=== PATIENT | male | born 1975 | race Caucasian/White ===

== ENCOUNTER 2018-10-21 06:01 | Emergency (ER) | payer OTHER ==
[~2018-10-21] VITALS: Ht 175.3 cm; Wt 90.7 kg
--- OUTSIDE RECORDS SUMMARY | 2018-10-21 06:10 | XMS REPORT | Continuity of Care Document ---
Author Organization Unknown Address Unknown Allergies There is no data. Medications There is no data. Problems Date Dx Coded Attending Type Code Diagnosis Diagnosed By 12/20/2007 703.0 NAIL INGROWN 11/25/2012 465.9 UPPER RESPIRATORY INFECTION 12/06/2012 780.79 fatigue 12/06/2012 786.2 COUGH Procedures There is no data. Results There is no data. Encounters ACCT No. Visit Date/Time Discharge Status Pt. Type Provider Facility Loc./Unit Complaint [id number] 08/01/2013 12:30:00 08/01/2013 23:59:59 [facility] Outpatient [id number] 06/06/2013 11:57:00 06/06/2013 23:59:59 [facility] Outpatient [id number] 09/02/2017 11:35:00 09/02/2017 23:59:59 [facility] Outpatient ALIYAH CHILDRESS LAC [facility] [id number] 12/06/2012 09:23:00 Document Registration
--- OUTSIDE RECORDS SUMMARY | 2018-10-21 06:10 | XMS REPORT ---
Author JUAN Lynch [facility] eClinicalWorks Address Unknown Phone Unavailable Care Team Providers Care Department Store Manager Name Role Phone JUAN DAUGHERTY CP Unavailable Allergies, Adverse Reactions, Alerts Substance Reaction Event Type N.K.D.A. Info Not Available Non Drug Allergy Problems Problem Type Condition Code Onset Dates Condition Status Problem Other malaise and fatigue 780.79 Active Problem Cough 786.2 Active Problem Acute upper respiratory infections of unspecified site 465.9 Active Assessment Pain in right knee M25.561 Active Medications No Known Medications Procedures Procedure Coding System Code Date Office Visit, Est Pt., Level 3 CPT-4 02981 Dec 24, 2015 Vital Signs Date/Time: Dec 24, 2015 Cardiac Monitoring Heart Rate 100 bpm Weight 207.6 lbs Height 67 in BMI 32.51 Index Blood Pressure Diastolic 84 mmHg Blood Pressure Systolic 134 mmHg Results No Known Results Summary Purpose eClinicalWorks Submission
--- OUTSIDE RECORDS SUMMARY | 2018-10-21 06:10 | XMS REPORT ---
Author Author PRASHANT MONROE [facility] IN [facility] Address [address] [place] [address] Care Team Providers Care Museum Director Name Role Phone PRASHANT MONROE Unavailable PROBLEMS Type Condition ICD9-CM Code [id number] Code Onset Dates Condition Status SNOMED Code Problem Chondromalacia patellae, right knee M22.41 Active 67704316 Problem Acute upper respiratory infections of unspecified site 465.9 Active 77738095 Problem Other malaise and fatigue 780.79 Active 586291437 Problem Cough 786.2 Active 60593319 ALLERGIES No Known Allergies ENCOUNTERS Encounter Location Date Diagnosis [facility] [place] [address] [place] [id number] [place] [address] August, Acute gastritis without hemorrhage, unspecified gastritis type K29.00 [place] [address] [place] [id number] [place] [id number] Mar, Chondromalacia patellae, right knee M22.41 [place] [address] [place] [id number] [place] [address] Jan, Pes anserinus bursitis of right knee M70.51 [place] [address] [place] [id number] [place] [address] Dec, Encounter to establish care Z76.89 ; Pain in right knee M25.561 and Other chronic pain G89.29 [place] [address] [place] [id number] [place] [address] Dec, Pain in right knee M25.561 [facility]ALK IN [facility] [address] [place] [id number] [place] [address] Nov, Pain in right knee M25.561 [place] [address] [place] [id number] [place] [address] Jul, [facility] [address] [facility] [id number] [address] Jul, [facility] [address] [facility] [id number] [address] Nov, [facility] [address] [facility] [id number] [address] Nov, [facility] [address] [facility] [id number] [address] Nov, IMMUNIZATIONS No Known Immunizations SOCIAL HISTORY Never Assessed REASON FOR VISIT Lower abd pain started Wednesday- from a pepper he ate JStrasserRN PLAN OF CARE Activity Details Follow Up keep scheduled appt. for f/u and to address HTN Reason: VITAL SIGNS Height 67 in 2017-09-02 Weight 214.2 lbs 2017-09-02 Temperature 97.8 degrees Fahrenheit 2017-09-02 Heart Rate 68 bpm 2017-09-02 Respiratory Rate 20 2017-09-02 BMI 33.54 kg/m2 2017-09-02 Blood pressure systolic 132 mmHg 2017-09-02 Blood pressure diastolic 100 mmHg 2017-09-02 MEDICATIONS Medication Instructions Dosage Frequency Start Date End Date Duration Status Advil 200 MG Orally Three times a day 1 tablet with food or milk as needed 8h Active Ranitidine HCl 150 MG Orally Once a day 1 tablet at bedtime 24h August, 30 day(s) Active RESULTS No Results PROCEDURES No Known procedures INSTRUCTIONS MEDICATIONS ADMINISTERED No Known Medications
--- OUTSIDE RECORDS SUMMARY | 2018-10-21 06:10 | XMS REPORT ---
Author Author MAX SHARMA [facility] Address [address] [place] [address] Care Team Providers Care Him Analyst Name Role Phone EDITH MAX Unavailable PROBLEMS Type Condition ICD9-CM Code [id number] Code Onset Dates Condition Status SNOMED Code Problem Acute upper respiratory infections of unspecified site 465.9 Active 64437086 Problem Other malaise and fatigue 780.79 Active 226279000 Problem Cough 786.2 Active 09538377 Assessment Pain in right knee M25.561 Dec, Active 18931771 ALLERGIES Substance Reaction Event Type Date Status N.K.D.A. Unknown Non Drug Allergy Dec, Unknown SOCIAL HISTORY No smoking Hx information available PLAN OF CARE VITAL SIGNS Height 67 in 2016-01-02 Weight 208.6 lbs 2016-01-02 Heart Rate 68 bpm 2016-01-02 Respiratory Rate 18 2016-01-02 BMI 32.67 kg/m2 2016-01-02 Blood pressure systolic 144 mmHg 2016-01-02 Blood pressure diastolic 82 mmHg 2016-01-02 MEDICATIONS Unknown Medications RESULTS No Results PROCEDURES Procedure Date Ordered Related Diagnosis Body Site Office Visit, Est Pt., Level 3 Jan 02, 2016 IMMUNIZATIONS No Known Immunizations
--- OUTSIDE RECORDS SUMMARY | 2018-10-21 06:10 | XMS REPORT ---
Author Author ROLO GUZMAN [facility] eClinicalWorks Address Unknown Phone Unavailable Care Team Providers Care Lime Kiln Operator Name Role Phone ROLO GUZMAN CP Unavailable Allergies No Known Allergies Problems Problem Type Condition Code Onset Dates Condition Status Problem Other malaise and fatigue 780.79 Active Problem Cough 786.2 Active Problem Acute upper respiratory infections of unspecified site 465.9 Active Assessment Pes anserinus bursitis of right knee M70.51 Active Medications No Known Medications Procedures Procedure Coding System Code Date Office Visit, Est Pt., Level 3 CPT-4 79504 Feb 13, 2016 DEPO MEDROL 80 MG/ML CPT-4 J1040 Feb 13, 2016 DRAIN/INJECT, JOINT/BURSA CPT-4 32839 Feb 13, 2016 Vital Signs Date/Time: Feb 13, 2016 Blood Pressure Diastolic 80 mmHg Blood Pressure Systolic 132 mmHg Height 67 in Results Name Result Date Reference Range Unit Abnormality Flag JOINT INJECTION-LARGE JOINT Summary Purpose eClinicalWorks Submission
--- OUTSIDE RECORDS SUMMARY | 2018-10-21 06:10 | XMS REPORT ---
Author Author Migration, Doctor Organization [facility] Address Unknown Phone Unavailable Care Team Providers Care Sweatband Shaper Name Role Phone Migration, Doctor Unavailable Unavailable PROBLEMS Type Condition ICD9-CM Code [id number] Code Onset Dates Condition Status SNOMED Code Problem Acute upper respiratory infections of unspecified site 465.9 Active 40308053 Problem Chondromalacia patellae, right knee M22.41 Active 76308909 Problem Cough 786.2 Active 76488865 Problem Other malaise and fatigue 780.79 Active 463113327 ALLERGIES No Information ENCOUNTERS Encounter Location Date Diagnosis [facility]ALK IN [facility] [address] [address] August, Acute gastritis without hemorrhage, unspecified gastritis type K29.00 [place] [address] [address] Mar, Chondromalacia patellae, right knee M22.41 [place] [address] [address] Jan, Pes anserinus bursitis of right knee M70.51 [place] [address] [address] Dec, Encounter to establish care Z76.89 ; Pain in right knee M25.561 and Other chronic pain G89.29 [facility] [place] [address] [place] [id number] [place] [address] Dec, Pain in right knee M25.561 [facility] [address] [address] Nov, Pain in right knee M25.561 [place] [address] [address] Jul, [place] [address] [place] [address] Jul, [facility] [place] [address] [facility] [id number] [place] [address] Nov, [facility] [place] [address] [facility] [id number] [place] [address] Nov, [facility] [place] [address] [facility] [id number] [address] Nov, IMMUNIZATIONS No Known Immunizations SOCIAL HISTORY Never Assessed REASON FOR VISIT EMR-[facility] PLAN OF CARE VITAL SIGNS MEDICATIONS Medication Instructions Dosage Frequency Start Date End Date Duration Status Levaquin 750 mg 1 tablet by Oral route every 24 hours for 10 days Nov, Active PredniSONE 20 mg 1 tablet by Oral route 2 times per day for 5 day(s) suggested dosing time 8 am and 3 pm Nov, Active Codeine-Guaifenesin 10-100 mg/5 mL take 5-10 milliliters by Oral route as needed every 4 hours will cause drowsiness. No driving or operating equipment Nov, Active Zithromax Z-Evert 250 mg 2 tablet by Oral route 1 time per day for 5 days on day 1 then take 1 tab daily on days 2-5 Nov, Active RESULTS No Results PROCEDURES No Known procedures INSTRUCTIONS MEDICATIONS ADMINISTERED No Known Medications
--- OUTSIDE RECORDS SUMMARY | 2018-10-21 06:10 | XMS REPORT ---
Author Author EL KIMBLE [facility] Address Unknown Phone Unavailable Care Team Providers Care Architecture Internship Name Role Phone EL KIMBLE CP Unavailable Allergies, Adverse Reactions, Alerts Substance Reaction Event Type N.K.D.A. Info Not Available Non Drug Allergy Problems Problem Type Condition Code Onset Dates Condition Status Problem Other malaise and fatigue 780.79 Active Problem Cough 786.2 Active Problem Acute upper respiratory infections of unspecified site 465.9 Active Assessment Other chronic pain G89.29 Active Assessment Encounter to establish care Z76.89 Active Assessment Pain in right knee M25.561 Active Medications No Known Medications Procedures Procedure Coding System Code Date Office Visit, New Pt., Level 3 CPT-4 95875 Jan 23, 2016 X-RAY EXAM OF KNEE, 3 CPT-4 96007 Jan 23, 2016 Vital Signs Date/Time: Jan 23, 2016 Cardiac Monitoring Heart Rate 64 bpm Weight 207.6 lbs Height 67 in BMI 32.51 Index Blood Pressure Diastolic 84 mmHg Blood Pressure Systolic 126 mmHg Results Name Result Date Reference Range Unit Abnormality Flag Xray : Knee, Right 3 views (IN HOUSE) Summary Purpose eClinicalWorks Submission
[2018-10-21] MEDS ORDERED: KETOROLAC 60 MG/2 ML VIAL IM STA (06:32)
--- NOTE | 2018-10-21 06:41 | ED Back Pain ---
General Chief Complaint: General Problems/Pain Stated Complaint: BACK PAIN Nursing Triage Note: PT COMPLAINING OF PAIN ACROSS HIS BOTTOM THAT STARTED 4 DAYS AGO. PT STATES HE DID NOT INJURE IT BUT THE PAIN WAKES HIM UP FROM HIS SLEEP Nursing Sepsis Screen: No Definite Risk Source of Information: Patient Exam Limitations: Language Barrier History of Present Illness Date Seen by Provider: Oct 21, 2018 Time Seen by Provider: 06:26 Initial Comments Here with pain that has been intermittent over the last 4 days and is to the area of the coccyx. Denies any specific injury. 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 It woke him up this morning as about a month and he did take 3 ibuprofen [id number]. Denies any swelling to the area of pain. Hurts when he is sitting on it and when standing. Denies bowel or bladder problems but states it does hurt when he is having a bowel movement. Location: Coccyx Timing/Duration: 4-5 Days, Changing Over Time Severity: Moderate Radiation: Buttocks Method of Injury: Unknown Modifying Factors: Improves With Pain Medication Associated Symptoms: No muscle spasms, No numbness in legs/feet, No tingling in legs/feet, No sensory/motor loss, No loss of bladder control, No loss of bowel control Allergies and Home Medications Allergies Coded Allergies: No Known Drug Allergies (Unverified , 10/21/18) Home Medications No Active Prescriptions or Reported Meds Patient Home Medication List Home Medication List Reviewed: Yes Review of Systems Constitutional: see HPI; No chills, No fever Respiratory: no symptoms reported Cardiovascular: no symptoms reported Gastrointestinal: no symptoms reported Musculoskeletal: joint pain; No muscle pain Skin: no symptoms reported Psychiatric/Neurological: No Symptoms Reported Past Zkajkwh-Dhzlel-Hrsbko Hx Past Med/Social Hx: Reviewed Nursing Past Med/Soc Hx Patient Social History Alcohol Use: Denies Use Recreational Drug Use: No Recent Foreign Travel: No Contact w/Someone Who Travel: No Recent Infectious Disease Expo: No Recent Hopitalizations: No Physical Abuse: No Sexual Abuse: No Mistreated: No Past Medical History Surgeries: No Respiratory: No Cardiac: No Neurological: No Genitourinary: No Gastrointestinal: No Musculoskeletal: No Endocrine: No HEENT: No Cancer: No Psychosocial: No Integumentary: No Blood Disorders: No Family Medical History Reviewed Nursing Family Hx No Pertinent Family Hx Physical Exam Vital Signs Vital Signs - First Documented 10/21/18 06:15 Temp 98.4 Pulse 89 Resp 16 B/P (MAP) 142/84 (103) Pulse Ox 99 O2 Delivery Room Air Capillary Refill : Less Than 3 Seconds Height, Weight, BMI Height: 5'9.00" Weight: 200lbs. oz. 90.757892wc; BMI Method:Estimated General Appearance: No Apparent Distress, WD/WN Cardiovascular: Regular Rate, Rhythm, No Murmur Respiratory: Lungs Clear, Normal Breath Sounds Back: Normal Inspection, No CVA Tenderness, No Vertebral Tenderness, Other (mild tenderness in the area of the coccyx and low sacrum) Neurologic/Psychiatric: Alert, Oriented x3 Skin: Normal Color, Warm/Dry, Other (no obvious or noted wounds or swelling in the area of pain. No skin changes noted.) Progress/Results/Core Measures Results/Orders Lab Results Laboratory Tests Test 10/21/18 08:05 10/21/18 09:00 Range/Units White Blood Count 9.9 4.3-11.0 10^3/uL Red Blood Count 5.09 4.35-5.85 10^6/uL Hemoglobin 15.2 13.3-17.7 G/DL Hematocrit 43 40-54 % Mean Corpuscular Volume 85 80-99 FL Mean Corpuscular Hemoglobin 30 25-34 PG Mean Corpuscular Hemoglobin Concent 35 32-36 G/DL Red Cell Distribution Width 12.5 10.0-14.5 % Platelet Count 196 130-400 10^3/uL Mean Platelet Volume 9.6 7.4-10.4 FL Neutrophils (%) (Auto) 73 42-75 % Lymphocytes (%) (Auto) 18 12-44 % Monocytes (%) (Auto) 9 0-12 % Eosinophils (%) (Auto) 1 0-10 % Basophils (%) (Auto) 0 0-10 % Neutrophils # (Auto) 7.2 1.8-7.8 X 10^3 Lymphocytes # (Auto) 1.7 1.0-4.0 X 10^3 Monocytes # (Auto) 0.8 0.0-1.0 X 10^3 Eosinophils # (Auto) 0.1 0.0-0.3 10^3/uL Basophils # (Auto) 0.0 0.0-0.1 10^3/uL Sodium Level 139 135-145 MMOL/L Potassium Level 3.9 3.6-5.0 MMOL/L Chloride Level 106 98-107 MMOL/L Carbon Dioxide Level 22 21-32 MMOL/L Anion Gap 11 5-14 MMOL/L Blood Urea Nitrogen 15 7-18 MG/DL Creatinine 0.78 0.60-1.30 MG/DL Estimat Glomerular Filtration Rate > 60 BUN/Creatinine Ratio 19 Glucose Level 113 H 70-105 MG/DL Calcium Level 9.5 8.5-10.1 MG/DL Corrected Calcium 8.5-10.1 MG/DL Total Bilirubin 0.6 0.1-1.0 MG/DL Aspartate Amino Transf (AST/SGOT) 13 5-34 U/L Alanine Aminotransferase (ALT/SGPT) 34 0-55 U/L Alkaline Phosphatase 73 40-136 U/L C-Reactive Protein High Sensitivity 4.90 H 0.00-0.50 MG/DL Total Protein 7.6 6.4-8.2 GM/DL Albumin 4.6 H 3.2-4.5 GM/DL Urine Color YELLOW Urine Clarity CLEAR Urine pH 7 5-9 Urine Specific Udall 1.010 L 1.016-1.022 Urine Protein NEGATIVE NEGATIVE Urine Glucose (UA) NEGATIVE NEGATIVE Urine Ketones NEGATIVE NEGATIVE Urine Nitrite NEGATIVE NEGATIVE Urine Bilirubin NEGATIVE NEGATIVE Urine Urobilinogen NORMAL NORMAL MG/DL Urine Leukocyte Esterase NEGATIVE NEGATIVE Urine RBC (Auto) NEGATIVE NEGATIVE Urine RBC RARE /HPF Urine WBC 2-5 /HPF Urine Squamous Epithelial Cells RARE /HPF Urine Crystals NONE /LPF Urine Bacteria NEGATIVE /HPF Urine Casts NONE /LPF Urine Mucus MODERATE H /LPF Urine Culture Indicated NO My Orders Orders - QUENTIN ALDANA MD Sacrum And Coccyx (10/21/18 06:32) Ketorolac Injection (Toradol Injection) (10/21/18 06:32) Cbc With Automated Diff (10/21/18 08:01) Comprehensive Metabolic Panel (10/21/18 08:01) Hs C Reactive Protein (10/21/18 08:01) Ua Culture If Indicated (10/21/18 08:01) Ct Abdomen/Pelvis W (10/21/18 08:01) Ed Iv/Invasive Line Start (10/21/18 08:01) Ns Iv 1000 Ml (Sodium Chloride 0.9%) (10/21/18 08:01) Iohexol Injection (Omnipaque 350 Mg/Ml 1 (10/21/18 08:45) Received Contrast (Hold Metformin- Contr (10/21/18 08:45) Ns (Ivpb) (Sodium Chloride 0.9% Ivpb Bag (10/21/18 08:45) Medications Given in ED Current Medications Medications Dose Ordered Sig/Billy Route Start Time Stop Time Status Last Admin Dose Admin Iohexol 100 ml ONCE ONCE IV 10/21/18 08:45 10/21/18 08:46 DC 10/21/18 08:49 100 ML Sodium Chloride 100 ml ONCE ONCE IV 10/21/18 08:45 10/21/18 08:46 DC 10/21/18 08:49 80 ML Sodium Chloride 1,000 ml @ 0 mls/hr Q0M ONCE IV 10/21/18 08:01 10/21/18 08:03 DC 10/21/18 08:08 1,000 MLS/HR Vital Signs/I&O 10/21/18 06:15 Temp 98.4 Pulse 89 Resp 16 B/P (MAP) 142/84 (103) Pulse Ox 99 O2 Delivery Room Air Blood Pressure Mean: 103 Progress Progress Note : Progress Note Seen and evaluated. Sacral and coccyx x-ray ordered. Toradol 60 mg IM ordered. Monitor patient. Rectal exam performed and patient is trace positive on blood. Given his lower abdominal pain and the heme positive stool, further evaluation is indicated. This was discussed with the patient via landscape architecture teacher line and he agrees. IV, labs, UA and CT abdomen and pelvis with contrast ordered. Monitor patient. 1025: CT does not show any acute findings and labs are normal overall. UA is negative. This may be related to just irritation of the lower coccyx although blood in stool (to be further evaluated. Surgical referral was given for the patient to follow up with Dr. Muller. Discharged home with return precautions. Patient verbalize understanding instructions and agreement with plan. Discharge instructions via the landscape architecture teacher line. Diagnostic Imaging Diagonstic Imaging: Xray Plain Films/CT/US/NM/MRI: other Comments [facility] [place], [place] NAME: MARY JANE SEVILLA S [facility] REC#: [id number] PT STATUS: REG ER : 1975 PHYSICIAN: QUENTIN ALDANA MD ADMIT DATE: 10/21/18/ER Draft Date of Exam:10/21/18 SACRUM AND COCCYX Clinical indication: Patient with tailbone pain. No known injury. Exam: X-ray of the sacrum and coccyx, 3 views. Comparison: None. Findings: There is no evidence of cortical disruption or fracture seen on this exam. Sacroiliac joints are unremarkable. Visualized course of the symphysis pubis show mild spurring but no acute traumatic finding. Impression: There is no acute fracture or dislocation. If there is continued concern, then CT scan would better evaluate. Dictated on workstation # [id number] Dict: 10/21/18 0708 Trans: 10/21/18709 [facility] [id number] Interpreted by: LAVERNE LOCK MD Electronically signed by: Antonella Imaging: CT Plain Films/CT/US/NM/MRI: abdomen, pelvis Comments [facility] [place], [place] NAME: MARY JANE SEVILLA [facility] REC#: [id number] PT STATUS: REG ER : 1975 PHYSICIAN: QUENTIN ALDANA MD ADMIT DATE: 10/21/18/ER Draft Date of Exam:10/21/18 CT ABDOMEN/PELVIS W PROCEDURE: CT abdomen and pelvis with contrast. TECHNIQUE: Multiple contiguous axial images were obtained through the abdomen and pelvis after administration of intravenous contrast. Auto Exposure Controls were utilized during the CT exam to meet ALARA standards for radiation dose reduction. INDICATION: Posterior pain on the left. Symptoms 4 days duration. No previous. There is no hydroureteronephrosis. No appreciable opaque urinary tract stone. The kidneys appeared normal. The adrenals negative. Liver densities consistent with mild steatosis. The gallbladder and bile ducts negative. Pancreas and spleen normal. There is no small or large bowel obstruction. The air-containing appendix is normal. There is no diverticulitis. No abdominal wall defect hernia or fluid collection. No ascites, abscess hematoma or other fluid collection. No pneumatosis or free gas. No focal inflammatory process. Lung bases and the osseous structures appeared nonacute. IMPRESSION: Unremarkable CT abdomen and pelvis. Dictated on workstation # [id number] Dict: 10/21/1804 Trans: 10/21/1813 CV [id number] Interpreted by: DEVENDRA BALES Electronically signed by: Departure Impression Primary Impression: Coccygeal pain, acute Additional Impression: Occult blood positive stool Disposition: HOME, SELF-CARE Condition: Improved Departure-Patient Inst. Decision time for Depature: 10:40 Referrals: [facility] (PCP/Family) Primary Care Physician Patient Instructions: Coccyx Injury (DC), Bloody Stools, Adult (DC) Add. Discharge Instructions: All discharge instructions reviewed with patient and/or family. Voiced understanding. Take medication as directed. You may take ibuprofen 600 mg every 8 hours as needed for pain. You may take Tylenol/acetaminophen 1000 mg every 8 hours as needed for pain if you're not taking the prescribed pain medicine. Follow-up with Dr. Chavez next week. Call his office today for appointment next week. Return for worse pain, weakness, breathing problems, blood in her stool or other concerns as needed. Scripts Hydrocodone Bit/Acetaminophen (Hydrocodone/Acetaminophen 5/325mg Tablet) 1 Tab Tab 1 EACH PO Q6H PRN for PAIN-MODERATE MDD 10 for 3 Days, #10 TAB Prov: QUENTIN ALDANA MD 10/21/18 Copy Copies To 1: DOLLY MULLER DO Copies To 2: JEANIE PATIÑO DO QUENTIN ALDANA MD Oct 21, 2018 06:41
--- NOTE | 2018-10-21 07:11 | Diagnostic Imaging Report ---
Clinical indication: Patient with tailbone pain. No known injury. Exam: X-ray of the sacrum and coccyx, 3 views. Comparison: None. Findings: There is no evidence of cortical disruption or fracture seen on this exam. Sacroiliac joints are unremarkable. Visualized course of the symphysis pubis show mild spurring but no acute traumatic finding. Impression: There is no acute fracture or dislocation. If there is continued concern, then CT scan would better evaluate. Dictated by: Dictated on workstation # [id number]
[2018-10-21] MEDS ORDERED: NS IV 1000 ML 1,000 ML IV ONE (08:01)
[2018-10-21 08:11] LABS: BASOPHILS % (AUTO) 0 % (0-10); EOSINOPHILS # (AUTO) 0.1 10^3/uL (0.0-0.3); EOSINOPHILS % (AUTO) 1 % (0-10); HEMATOCRIT 43 % (40-54); HEMOGLOBIN 15.2 G/DL (13.3-17.7); LYMPHOCYTES # (AUTO) 1.7 X 10^3 (1.0-4.0); LYMPHOCYTES % (AUTO) 18 % (12-44); MEAN CORPUSCULAR HEMOGLOBIN 30 PG (25-34); MEAN CORPUSCULAR HGB CONC 35 G/DL (32-36); MEAN CORPUSCULAR VOLUME 85 FL (80-99); MEAN PLATELET VOLUME 9.6 FL (7.4-10.4); MONOCYTES # (AUTO) 0.8 X 10^3 (0.0-1.0); MONOCYTES % (AUTO) 9 % (0-12); NEUTROPHILS # (AUTO) 7.2 X 10^3 (1.8-7.8); NEUTROPHILS % (AUTO) 73 % (42-75); PLATELET COUNT 196 10^3/uL (130-400); RED CELL DISTRIBUTION WIDTH 12.5 % (10.0-14.5); WHITE BLOOD COUNT 9.9 10^3/uL (4.3-11.0)
[2018-10-21 08:41] LABS: ALANINE AMINOTRANSFERASE 34 U/L (0-55); ALBUMIN 4.6 GM/DL (3.2-4.5); ALKALINE PHOSPHATASE 73 U/L (40-136); BILIRUBIN,TOTAL 0.6 MG/DL (0.1-1.0); BUN/CREATININE RATIO 19; CALCIUM 9.5 MG/DL (8.5-10.1); CARBON DIOXIDE 22 MMOL/L (21-32); CHLORIDE 106 MMOL/L (98-107); CREATININE SERUM 0.78 MG/DL (0.60-1.30); GFR ESTIMATED > 60; GLUCOSE 113 MG/DL (70-105); POTASSIUM 3.9 MMOL/L (3.6-5.0); SODIUM 139 MMOL/L (135-145); TOTAL PROTEIN 7.6 GM/DL (6.4-8.2)
[2018-10-21] MEDS ORDERED: HOLD METFORMIN - RECEIVED CONTRAST 20 ML VIAL IV SCH (08:45)
[2018-10-21] MEDS ORDERED: NS 100 ML (IVPB) BAG IV ONE (08:45)
[2018-10-21] MEDS ORDERED: IOHEXOL 350 MG/ML 100 ML (OMNIPAQUE 350) VIAL IV ONE (08:45)
--- NOTE | 2018-10-21 09:14 | Diagnostic Imaging Report ---
PROCEDURE: CT abdomen and pelvis with contrast. TECHNIQUE: Multiple contiguous axial images were obtained through the abdomen and pelvis after administration of intravenous contrast. Auto Exposure Controls were utilized during the CT exam to meet ALARA standards for radiation dose reduction. INDICATION: Posterior pain on the left. Symptoms 4 days duration. No previous. There is no hydroureteronephrosis. No appreciable opaque urinary tract stone. The kidneys appeared normal. The adrenals negative. Liver densities consistent with mild steatosis. The gallbladder and bile ducts negative. Pancreas and spleen normal. There is no small or large bowel obstruction. The air-containing appendix is normal. There is no diverticulitis. No abdominal wall defect hernia or fluid collection. No ascites, abscess hematoma or other fluid collection. No pneumatosis or free gas. No focal inflammatory process. Lung bases and the osseous structures appeared nonacute. IMPRESSION: Unremarkable CT abdomen and pelvis. Dictated by: Dictated on workstation # [id number]
[2018-10-21 09:57] LABS: BILIRUBIN,URINE NEGATIVE (NEGATIVE); CLARITY,URINE CLEAR; COLOR,URINE YELLOW; GLUCOSE, URINE (UA) NEGATIVE (NEGATIVE); KETONES,URINE NEGATIVE (NEGATIVE); LEUKOCYTE ESTERASE ,URINE NEGATIVE (NEGATIVE); NITRITE,URINE NEGATIVE (NEGATIVE); PH,URINE 7 (5-9); PROTEIN,URINE NEGATIVE (NEGATIVE); UROBILINOGEN,URINE NORMAL (NORMAL)
[2018-10-21 10:12] LABS: BACTERIA,URINE NEGATIVE /HPF; RBC,URINE RARE /HPF; SQUAMOUS EPITHELIAL CELL,UR RARE /HPF
[2018-10-21] MEDS ORDERED: ACHD5005 PO (10:42)
[2018-10-21 11:04] VITALS: BP 126/71
== END 2018-10-21 11:04 | disposition home or self-care (01) ==
LOC: EDUNIT# 06:01 → ER 06:07
DX: M53.3 Sacrococcygeal disorders, not elsewhere classified (principal); R19.5 Other fecal abnormalities
CPT/HCPCS: 36415; 72220; 74177; 80053; 81000; 85025; 86141

== ENCOUNTER → 2019-01-30 | Outpatient (CLI) | payer OTHER ==
[~2019-01-30] MED LIST: ACHD5005 PO
== END | disposition home or self-care (01) ==
LOC: PREOP 05:41
PROVIDERS: ATTEND Surgery
DX: Z01.818 Encounter for other preprocedural examination (principal)

== ENCOUNTER 2019-02-06 07:50 | Day surgery (SDC) | payer OTHER ==
[~2019-02-06] VITALS: Ht 175.3 cm; Wt 95.5 kg
--- NOTE | 2019-02-06 08:09 | Progress Note-Pre Operative ---
Pre-Operative Progress Note H&P Reviewed The H&P was reviewed, patient examined and no changes noted. Time Seen by Provider: 08:04 Date H&P Reviewed: Feb 06, 2019 Time H&P Reviewed: 08:05 Pre-Operative Diagnosis: rectal bleeding DOLLY MULLER DO Feb 06, 2019 08:09
[2019-02-06] MEDS ORDERED: LACTATED RINGERS 1,000 ML IV ONE (08:21)
[2019-02-06] MEDS ORDERED: LACTATED RINGERS 1,000 ML IV STA (08:35)
[2019-02-06 08:39] VITALS: BP 130/83
[2019-02-06] MEDS ORDERED: MIDAZOLAM 2 MG/2 ML (VERSED) VIAL ONE (09:17)
[2019-02-06] MEDS ORDERED: proPOfol 200 MG/20 ML (DIPRIVAN) VIAL IV ONE (09:17)
[2019-02-06 09:50] VITALS: BP 132/81
--- NOTE | 2019-02-06 09:51 | Progress Note-Post Operative ---
Post-Operative Progess Note Surgeon (s)/Advertising Columnist (s) Surgeon DOLLY MULLER DO Advertising Columnist: DIMITRIS Najera Pre-Operative Diagnosis rectal bleeding Post-Operative Diagnosis internal hemorrhoids Procedure & Operative Findings Date of Procedure 02/06/19 Procedure Performed/Findings colonoscopy Anesthesia Type IV sedation by PLATFORM ATTENDANT Estimated Blood Loss Estimated blood loss (mL): none Specimens/Packing Specimens Removed none DOLLY MULLER DO Feb 06, 2019 09:50
--- NOTE | 2019-02-06 09:52 | Endoscopy Discharge Instruct ---
Endo Procedure/Findings Findings 1.: Internal Hemorrhoids Discharge Instructions - Activity: You might feel a little sleepy until tomorrow. This is due to the me dicine you received to relax you. Until tomorrow, you should: NOT drive a car, operate machinery or power tools. NOT drink any alcoholic beverages. NOT make any important decisions or sign importortant papers. Do not return to work until tomorrow, unless otherwise instructed. Resume previous activities tomorrow. Diet: Start by taking liquids. If you tolerate liquids, advance to solid food. make an appointment for one week 1.: Colonscopy in 10 years Notify Physician - If you experience excessive bleeding, unusual abdominal pain, fever, or chest pain, contact your doctor immediately. DOLLY MULLER DO Feb 06, 2019 09:52
--- NOTE | 2019-02-06 10:15 | Anesthesia-General Post-Op ---
MAC Patient Condition Mental Status/LOC: Same as Preop Cardiovascular: Satisfactory Nausea/Vomiting: Absent Respiratory: Satisfactory Pain: Controlled Complications: Absent Post Op Complications Complications None Follow Up Care/Instructions Patient Instructions None needed. Anesthesiology Discharge Order Discharge Order Patient is doing well, no complaints, stable vital signs, no apparent adverse anesthesia problems. No complications reported per nursing. JIAN SWARTZ CRNA Feb 06, 2019 10:15
[2019-02-06 10:20] VITALS: BP 123/90
[2019-02-06 10:30] VITALS: BP 123/90
--- NOTE | 2019-02-06 14:21 | OPERATIVE REPORT ---
DATE OF SERVICE: 02/06/2019 PREOPERATIVE DIAGNOSIS: Rectal bleed. POSTOPERATIVE DIAGNOSIS: Internal hemorrhoids. PROCEDURE: Colonoscopy. SURGEON: Norman Ramos DO BOOK SHELVER: Adrianna Gutiérrez MS3. SPECIMENS: None. BLOOD LOSS: None. FLUIDS: Per anesthesia. POSTOPERATIVE CONDITION: Stable. INDICATION FOR PROCEDURE: The patient is a 43-year-old male who had some rectal bleeding and needed a workup. FINDINGS: The patient had some internal hemorrhoids. No other obvious pathology. PROCEDURE NOTE: After informed consent was obtained, the patient was brought to the endoscopy suite and placed in the bed in left lateral decubitus position. He was administered IV sedation by the MOTORCYCLE POLICE, who then monitored his vitals the entire time, heart rate, blood pressure and pulse ox and the scope was inserted, pushed all the way about 150 cm, able to get all the way to the cecum, took a picture of appendiceal orifice, noted the ileocecal valve and then slowly withdrew the scope, insufflating to look circumferentially at the rondon looking at the cecum up the ascending colon to the hepatic flexure, then down the transverse colon, splenic flexure, into the descending colon down into the sigmoid and finally into the rectum, retroflexed the rectal vault, saw some minimal internal hemorrhoids, did not see any obvious pathology. Scope was removed. The patient tolerated the procedure, recovered in endoscopy suite. Job ID: [id number] DocumentID: [id number] Dictated Date: 02/06/2019 09:49:51 Process Safety Management Engineer Date: 02/06/2019 14:19:29 Dictated By: NORMAN RAMOS DO
== END 2019-02-06 10:40 | disposition home or self-care (01) ==
LOC: ENDO 07:50
PROVIDERS: ATTEND Surgery
DX: K64.8 Other hemorrhoids (principal); K62.5 Hemorrhage of anus and rectum; I10 Essential (primary) hypertension; M54.18 Radiculopathy, sacral and sacrococcygeal region; E66.09 Other obesity due to excess calories; Z68.31 Body mass index [BMI] 31.0-31.9, adult; Z79.891 Long term (current) use of opiate analgesic; Z79.899 Other long term (current) drug therapy